=== PATIENT | female | born 1960 | race Two or more races ===

== ENCOUNTER 2017-10-04 19:18 | Emergency (ER) | payer OTHER ==
[~2017-10-04] VITALS: Ht 157.5 cm; Wt 68.9 kg
[2017-10-04] MEDS ORDERED: HYDROmorphone HCL 2 MG/ML VL IV ONE (20:30)
[2017-10-04] MEDS ORDERED: ONDANSETRON HCL 4 MG/2 ML VIAL IV ONE (20:30)
[2017-10-04] MEDS ORDERED: LORazepam 2MG/ML-1ML VIAL ONE (20:56)
[2017-10-04] MEDS ORDERED: LORazepam 2MG/ML-1ML VIAL IV ONE (21:00)
[2017-10-04 21:54] VITALS: BP 134/78
== END 2017-10-04 21:59 | disposition short-term general hospital (02) ==
LOC: ER 19:18
DX: S82.292A Other fracture of shaft of left tibia, initial encounter for closed fracture (principal); S82.492A Other fracture of shaft of left fibula, initial encounter for closed fracture; T79.A22A Traumatic compartment syndrome of left lower extremity, initial encounter; E78.5 Hyperlipidemia, unspecified; W01.0XXA Fall on same level from slipping, tripping and stumbling without subsequent striking against object, initial encounter; Y93.89 Activity, other specified; Y99.8 Other external cause status; Y92.89 Other specified places as the place of occurrence of the external cause
CPT/HCPCS: 29515; 73590; 96374; 96375; 99284; J1170; J2060; J2405